=== PATIENT | female | born 1945 | race Caucasian/White ===

== ENCOUNTER 2017-08-22 10:17 | Inpatient (IN) | payer OTHER ==
[~2017-08-22] VITALS: Ht 170.2 cm; Wt 84.1 kg
[~2017-08-22 10:17] MED LIST: ASPIRIN81 M2 PO; CALCIUM 250+D1 EACH PO; COQ-10100 MG PO; CRESTOR20 MG PO; FAMVIR500 MG PO; FLONASE ALLERG9.9 ML BOTH NARES; LYRICA150 MG PO; MULTIPLE VITAM1 EACH PO; OMEGA-3100 MG PO; PANTOPRAZOLE SO40 MG PO; RANITIDINE HCL300 MG PO; VITAMIN B122500 MCG PO; ZOLOFT50 MG PO
[2017-08-22 14:51] LABS: BASOPHIL (%) 0.6 % (0-1); EOSINOPHIL (%) 0.4 % (0-5); HEMATOCRIT 42.7 % (36.0-46.0); HEMOGLOBIN 14.4 G/DL (11.9-15.5); IMMATURE GRANULOCYTE (%) 0.2 % (0.0-0.7); LYMPHOCYTE (%) 32.1 % (15-42); LYMPHOCYTE COUNT 1.7 K/uL (1.0-2.8); MCH 29.7 PG (29.0-34.0); MCHC 33.7 G/DL (30.0-36.0); MONOCYTE (%) 11.9 % (3-12); MONOCYTE COUNT 0.6 K/uL (0-0.8); NEUTROPHIL (%) 54.8 % (45-76); NEUTROPHIL COUNT 2.9 K/uL (1.8-6.4); PLATELET COUNT 245 K/uL (156-360); RBC DIS.WIDTH-CV 12.6 % (11.8-14.6); RBC DIS.WIDTH-SD 40.7 % (39-53); RED BLOOD COUNT 4.85 M/uL (3.80-5.20); WHITE BLOOD COUNT 5.2 K/uL (4.1-10.2)
[2017-08-22 15:10] LABS: ALBUMIN 4.3 g/dL (3.2-4.8); CHLORIDE 110 mEq/L (99-109); POTASSIUM 4.3 mEq/L (3.7-5.4); SODIUM 142 mEq/L (136-147)
[2017-08-22 15:13] LABS: GLUCOSE 83 mg/dL (70-99); TOTAL PROTEIN 6.8 g/dL (6.4-8.3)
[2017-08-22 15:14] LABS: TOTAL BILIRUBIN 0.3 mg/dL (0.0-1.0)
[2017-08-22 15:15] LABS: SERUM ETHYL ALCOHOL < 10 mg/dL
[2017-08-22 15:16] LABS: ALKALINE PHOSPHATASE 51 IU/L (3-129); CREATININE 0.8 mg/dL (0.6-1.3); GFR ESTIMATE (CALCULATED) > 59 mL/min/
[2017-08-22 15:17] LABS: UREA NITROGEN (BUN) 8 mg/dL (9-23)
[2017-08-22 15:18] LABS: AST (GOT) 15 IU/L (2-34)
[2017-08-22 15:19] LABS: ALT (GPT) 18 IU/L (3-49)
[2017-08-22 16:32] LABS: APPEARANCE CLEAR ((CLEAR)); BILIRUBIN NEGATIVE; BLOOD NEGATIVE; COLOR YELLOW ((YELLOW)); GLUCOSE (STRIP) NEGATIVE; KETONES NEGATIVE; LEUKOCYTES SMALL; NITRITE NEGATIVE; PROTEIN (STRIP) NEGATIVE; SPECIFIC GRAVITY 1.012 (1.000-1.030); UROBILINOGEN 0.2 MG/DL (0.2-1.0)
[2017-08-22 17:03] LABS: AMPHETAMINE NEGATIVE (500 ng/mL); BARBITURATES NEGATIVE (200 ng/mL); BENZODIAZEPINES NEGATIVE (150 ng/mL); BUPRENORPHINE NEGATIVE (10 ng/mL); COCAINE NEGATIVE (150 ng/mL); METHADONE NEGATIVE (200 ng/mL); METHAMPHETAMINE NEGATIVE (500 ng/mL); OPIATES (MORPHINE) NEGATIVE (100 ng/mL); OXYCODONE NEGATIVE (100 ng/mL); PHENCYCLIDINE NEGATIVE (25 ng/mL); PROPOXYPHENE NEGATIVE (300 ng/mL); THC CANNABINOIDS NEGATIVE (50 ng/mL); TRICYCLIC ANTIDEPRESSANTS NEGATIVE (300 ng/mL)
[2017-08-22 17:13] LABS: BACTERIA RARE /HPF; EPITHELIAL CELLS RARE /HPF; MUCUS TRACE /LPF; RED BLOOD CELLS 0-5 /HPF (0-5); UCUL ADDED? YES
[2017-08-22] MEDS ORDERED: SERTRALINE HCL100 MG PO (20:52)
[2017-08-22] MEDS ORDERED: ROSUVASTATIN CA20 MG PO (20:53)
[2017-08-22 21:00] VITALS: BP 130/81
[2017-08-22 21:01] VITALS: BP 130/81
[2017-08-22] MEDS ORDERED: VITAMIN C1000 MG PO (21:25)
[2017-08-22] MEDS ORDERED: VITAMIN E100 UNIT PO (21:25)
[2017-08-22] MEDS ORDERED: VITAMIN B COMP1 EACH PO (21:26)
[2017-08-23 07:46] VITALS: BP 113/79
[2017-08-23 15:26] VITALS: BP 122/75
[2017-08-24 08:32] VITALS: BP 114/70
[2017-08-24 15:34] VITALS: BP 135/63
[2017-08-25 08:26] VITALS: BP 127/75
[2017-08-26 07:41] VITALS: BP 124/76
[2017-08-26 15:47] VITALS: BP 118/67
[2017-08-27 07:34] VITALS: BP 136/78
[2017-08-27 15:41] VITALS: BP 118/60
[2017-08-28 07:35] VITALS: BP 156/91
[2017-08-28 16:01] VITALS: BP 140/80
[2017-08-29 07:33] VITALS: BP 133/76
[2017-08-29] MEDS ORDERED: MIRTAZAPINE15 MG PO (09:18)
[2017-08-29] MEDS ORDERED: DEPAKOTE ER250 MG PO (09:18)
== END 2017-08-29 10:31 | disposition home or self-care (01) | DRG 885 ==
LOC: EME 10:17 → 1WEST 19:50 → EDOF 19:50 → ENRESERV 20:52 → 1WEST 20:54
PROVIDERS: Emergency Medicine
DX: F31.62 Bipolar disorder, current episode mixed, moderate (principal); F41.1 Generalized anxiety disorder; G47.00 Insomnia, unspecified; F10.10 Alcohol abuse, uncomplicated
CPT/HCPCS: 80053; 80164; 81003; 85025; 87086 GA; 90839; 97150 GO; 97166 GO; 99281; 99285; G0480